=== PATIENT | male | born 1990 | race Caucasian/White ===

== ENCOUNTER 2021-04-03 10:12 | Emergency (ER) | payer MEDICARE, OTHER ==
[~2021-04-03] VITALS: Ht 165.1 cm; Wt 70.0 kg
[2021-04-03] MEDS ORDERED: METH-1177 PO (10:23)
--- NOTE | 2021-04-03 12:18 | REP ---
INDICATION: constipated COMPARISON: None. TECHNIQUE: Supine view of the abdomen and pelvis. FINDINGS: Moderate fecal stasis consistent with constipation. No bowel obstruction or perforation. No organomegaly. No abnormal calcifications. Skeletal structures are intact. IMPRESSION: Fecal stasis/constipation. <Electronically signed by Kris Gray > 04/03/21 2066
[2021-04-03] MEDS ORDERED: FLEET OIL RETENTION ENEMA PR STA (13:50)
[2021-04-03] MEDS ORDERED: LACT20EL PO (15:18)
[2021-04-03] MEDS ORDERED: [UNRECOGNIZED DRUG - CODE] PO (15:18)
[2021-04-03] MEDS ORDERED: FLEEENE12 PR (15:18)
[2021-04-03 15:32] VITALS: BP 108/70
== END 2021-04-03 15:35 | disposition home or self-care (01) ==
LOC: M ED 10:12
DX: K59.00 Constipation, unspecified (principal); J45.909 Unspecified asthma, uncomplicated; F11.20 Opioid dependence, uncomplicated; Z88.8 Allergy status to other drugs, medicaments and biological substances